=== PATIENT | male | born 1960 | race Hispanic/Latino ===

== ENCOUNTER 2019-02-28 05:59 | Day surgery (SDC) | payer BC ==
[2019-02-28] MEDS ORDERED: Bupivacaine/Epinephrine 0.25% 30 ML VIAL ONE (06:51)
--- NOTE | 2019-02-28 07:32 | HP ---
CHIEF COMPLAINT: Left inguinal hernia. HISTORY OF PRESENT ILLNESS: The patient is a 58-year-old male who has had a painful left groin bulge and was found to have a hernia. No previous repaired. No right-sided symptoms. PAST MEDICAL HISTORY: Significant for hypertension and kidney stones. PAST SURGICAL HISTORY: Includes lithotripsy. MEDICATIONS: He is not currently taking any medications. FAMILY HISTORY: Diabetes and hypertension. SOCIAL HISTORY: He is . No tobacco. Occasional alcohol. ALLERGIES: NO KNOWN DRUG ALLERGIES. PHYSICAL EXAMINATION: VITAL SIGNS: Height 69, weight 251, body mass index 37, blood pressure 142/92, heart rate 77. GENERAL: He is a well-developed, well-nourished male, in no apparent distress. HEENT: Unremarkable. LUNGS: Clear. HEART: Regular rate and rhythm. ABDOMEN: Soft nondistended, and nontender. No masses or hernias. EXTREMITIES: Good pulses. No pedal edema. He has a reducible left inguinal hernia. No right-sided hernia. ASSESSMENT: Left inguinal hernia. PLAN: Left inguinal hernia repair with mesh. CONSENT: Discussed planned procedure as well as risk of bleeding, infection, injury to nerve, recurrence of the hernia. He understands and gives informed consent. Job ID: [id number]
[2019-02-28] MEDS ORDERED: Fentanyl 100 MCG/2 ML VIAL ONE (07:35)
[2019-02-28] MEDS ORDERED: Midazolam HCl 2 mg/2 ml Vial ONE (07:35)
[2019-02-28 07:36] LABS: #Basophils 0.1 thou/uL (0.0-0.2); #Eosinphils 0.5 thou/uL (0.0-0.7); #Monocytes 0.8 thou/uL (0.11-0.59); %Basophils 1.1 % (0.0-1.0); %Eosinophils 7.4 % (0.0-10.0); %Lymphocytes 26.8 % (21.0-51.0); %Monocytes 10.3 % (0.0-10.0); %Neutrophils 54.5 % (42.0-75.0); Mean Corpuscular HGB CONC 33.5 g/dL (32.0-36.0); Mean Corpuscular Hemoglobin 30.9 pg (27.0-31.0); Mean Corpuscular Volume 92.3 fL (78.0-98.0); Mean Platelet Volume 9.4 fL (7.4-10.4); Platelet Count 219 thou/uL (130-400); RBC Distribution Width 12.4 % (11.5-14.5); Red Blood Cell (RBC) Count 5.17 mill/uL (4.70-6.10); White Blood Cell (WBC) Count 7.3 thou/uL (4.8-10.8)
[2019-02-28 07:45] LABS: ALT (SGPT) 30 U/L (8-55); AST (SGOT) 20 U/L (5-34); Albumin 4.1 g/dL (3.5-5.0); Alkaline Phosphatase 65 U/L (40-150); Anion Gap 12 mmol/L (10-20); BUN (Urea Nitrogen) 20 mg/dL (8.4-25.7); Bilirubin, Total 0.7 mg/dL (0.2-1.2); Calc. Creatinine Clearance 81 mL/min (70-130); Calcium 9.4 mg/dL (7.8-10.44); Carbon Dioxide 25 mmol/L (22-29); Chloride 106 mmol/L (98-107); Estimated GFR-MDRD 83; Glucose 122 mg/dL (70-105); Protein, Total 7.1 g/dL (6.0-8.3); Sodium 139 mmol/L (136-145)
--- NOTE | 2019-02-28 09:39 | OP ---
DATE OF SERVICE: 02/28/2019 PREOPERATIVE DIAGNOSIS: Left inguinal hernia. PROCEDURE PERFORMED: Left inguinal hernia repair with mesh, excision of large 4 x 6 x 6 cm subcutaneous lipoma of the inguinal area. DESCRIPTION OF PROCEDURE: After informed consent was obtained, the patient was taken to the operating room and given general endotracheal anesthesia, placed in the supine position. His left groin was prepped and draped in usual fashion. A left transverse inguinal incision was performed. Subcu divided sharply. The fascia of external oblique was incised in direction of its fibers through the external ring. Spermatic cord was isolated with a Krystian drain. The bulge which was very obvious, did not seem to change with retraction of the cord. The cord was not enlarged. There was no indirect hernia there. There was a small direct hernia present, but this bulge which was very obvious on the outside was not a hernia. The bulge turned out to be a large subcutaneous lipoma, so I was able to open up the capsule and digitally extract this large 4 x 6 x 6 cm lipoma. We sent that to pathology. The direct inguinal hernia was circumscribed and reduced. Reduction was maintained with a PHS hernia system. Posterior layer placed in the preperitoneal space, anterior was laid out, sutured to the pubic tubercle medially, tucked under the external oblique fascia laterally. The cord placed at anatomic. The external oblique fascia was closed over the cord with a running 3-0 Vicryl. Manny was closed with interrupted 3-0 Vicryl and the skin closed with a running subcuticular 4-0 Rapide. Steri-Strips applied. Sterile bandage applied. The patient tolerated the procedure well, transferred to Recovery in good condition. Sponge and needle count verified correct x2. Job ID: [id number]
[2019-02-28] MEDS ORDERED: ePHEDrine 50 MG/ML VIAL ONE (17:26)
[2019-02-28] MEDS ORDERED: Lidocaine 1% PF 5 ML VIAL ONE (17:26)
[2019-02-28] MEDS ORDERED: PROPOFOL 200 MG/20 ML VIAL ONE (17:26)
[2019-02-28] MEDS ORDERED: Ondansetron PF 4 MG/2 ML Vial ONE (17:26)
[2019-02-28] MEDS ORDERED: Ketorolac Tromethamine 30 MG/ML VIAL ONE (17:26)
[2019-02-28] MEDS ORDERED: Dexamethasone 20 MG/5 ML VIAL ONE (17:26)
--- NOTE | 2019-03-05 14:43 | EKG ---
Test Reason : PREOP Blood Pressure : / mmHG Vent. Rate : 067 BPM Atrial Rate : 067 BPM P-R Int : 150 ms QRS Dur : 082 ms QT Int : 406 ms P-R-T Axes : 057 051 -08 degrees QTc Int : 429 ms Normal sinus rhythm Nonspecific T wave abnormality Abnormal ECG No previous ECGs available Confirmed by LUZ CHACON ([id number]) on 03/05/2019 2:42:44 PM Referred By: GERARD Confirmed By:LUZ CHACON
== END 2019-02-28 11:05 | disposition home or self-care (01) ==
LOC: SDC 05:59
PROVIDERS: ATTEND Surgery
PROC: 0YU60JZ Supplement Left Inguinal Region with Synthetic Substitute, Open Approach (ICD-10-PCS; principal; 2019-02-28)
DX: K40.90 Unilateral inguinal hernia, without obstruction or gangrene, not specified as recurrent (principal); D17.79 Benign lipomatous neoplasm of other sites; I10 Essential (primary) hypertension
CPT/HCPCS: 80053; 85025; 88304; 93005; 93010; C1781; J0690; J1100; J1885; J2001; J2250; J2405; J2704; J3010; J3490

== ENCOUNTER 2021-12-14 16:30 | Outpatient (CLI) | payer BC | END 2021-12-14 16:31 | disposition home or self-care (01) | LOC: SLEEPLAB 16:30 | PROVIDERS: ATTEND Student in an Organized Health Care Education/Training Program | DX: G47.33 Obstructive sleep apnea (adult) (pediatric) (principal); R06.83 Snoring; E11.9 Type 2 diabetes mellitus without complications; I10 Essential (primary) hypertension; E78.5 Hyperlipidemia, unspecified; R68.82 Decreased libido; E66.9 Obesity, unspecified; Z68.35 Body mass index [BMI] 35.0-35.9, adult | CPT/HCPCS: 95806 ==

== ENCOUNTER 2022-02-14 19:00 | Outpatient (CLI) | payer BC | END 2022-02-14 19:01 | disposition home or self-care (01) | LOC: SLEEPLAB 19:00 | PROVIDERS: ATTEND Student in an Organized Health Care Education/Training Program | DX: G47.33 Obstructive sleep apnea (adult) (pediatric) (principal); E66.9 Obesity, unspecified; R06.83 Snoring; I10 Essential (primary) hypertension; E11.9 Type 2 diabetes mellitus without complications; G47.31 Primary central sleep apnea | CPT/HCPCS: 95811 ==

== ENCOUNTER 2022-03-08 19:30 | Outpatient (CLI) | payer BC | END 2022-03-08 19:31 | disposition home or self-care (01) | LOC: SLEEPLAB 19:30 | PROVIDERS: ATTEND Student in an Organized Health Care Education/Training Program | DX: G47.33 Obstructive sleep apnea (adult) (pediatric) (principal); R06.83 Snoring; E11.9 Type 2 diabetes mellitus without complications; I10 Essential (primary) hypertension; G47.00 Insomnia, unspecified; G47.31 Primary central sleep apnea; E66.9 Obesity, unspecified; Z68.35 Body mass index [BMI] 35.0-35.9, adult | CPT/HCPCS: 95811 ==